=== PATIENT | male | born 1995 ===

== ENCOUNTER 2018-10-30 16:23 | Emergency (ER) | payer OTHER ==
[2018-10-30 16:35] VITALS: RESP 18
[2018-10-30 16:36] VITALS: BMI 26.7
--- NOTE | 2018-10-30 17:12 | ED PDOC ---
History of Present Illness History of Present Illness: Pt to ED for evaluation of productive cough, congestion and headache x1 week. Denies fever, chills, nausea, vomiting. Reports taking Tylenol at 13:30 and ibuprofen around 14:35 with mild relief. HPI: Influenza Time Seen by Provider: 10/30/18 16:48 Chief Complaint: Cough, Cold, Congestion Past Medical History Reviewed: Nursing Documentation, Vital Signs Vital Signs: Last Vital Signs Temp 100.1 F H 10/30/18 16:33 Pulse 95 H 10/30/18 16:33 Resp 18 10/30/18 16:33 BP 127/68 10/30/18 16:33 Pulse Ox 98 10/30/18 16:33 - Medical History PMH: No Chronic Diseases - Surgical History Surgical History: No Surg Hx - Family History Family History: States: No Known Family Hx - Living Arrangements Living Arrangements: With Family - Home Medications Home Medications: Ambulatory Orders Medication Instructions Recorded Azithromycin [Zithromax] 500 mg PO DAILY #6 tab 10/30/18 Ibuprofen [Motrin] 600 mg PO Q6 #20 tab 10/30/18 Methylprednisolone [Medrol Dose 4 mg PO DAILY #21 mg 10/30/18 Pack (21 tabs)] - Allergies Allergies/Adverse Reactions: Allergies Allergy/AdvReac Type Severity Reaction Status Date / Time No Known Allergies Allergy Verified 10/30/18 16:33 Review of Systems ROS Statement: Except As Marked, All Systems Reviewed And Found Negative Constitutional: Positive for: Fever ENT: Positive for: Nose Congestion Respiratory: Positive for: Cough Physical Exam - Reviewed Nursing Documentation Reviewed: Yes Vital Signs Reviewed: Yes - Physical Exam Appears: Positive for: Well, Non-toxic, No Acute Distress Head Exam: Positive for: ATRAUMATIC, NORMAL INSPECTION, NORMOCEPHALIC Skin: Positive for: Normal Color, Warm, DRY Eye Exam: Positive for: EOMI, Normal appearance, PERRL ENT: Positive for: Normal ENT Inspection Neck: Positive for: Normal, Painless ROM Cardiovascular/Chest: Positive for: Regular Rate, Rhythm Respiratory: Positive for: CNT, Normal Breath Sounds Gastrointestinal/Abdominal: Positive for: Normal Exam, Soft Back: Positive for: Normal Inspection Extremity: Positive for: Normal ROM Neurological/Psych: Positive for: Awake, Alert, Normal Tone Medical Decision Making Medical Decision Making: CXR: NAd, as read by PA-C Pt out of window for tamiflu Given RX to use, supportive care measures discussed as well. - ECG O2 Sat by Pulse Oximetry: 98 Disposition - Clinical Impression Clinical Impression: Viral syndrome, Upper respiratory infection - Patient ED Disposition Is Patient to be Admitted: No - Disposition Disposition: Routine/Home Disposition Time: 19:11 Condition: STABLE Prescriptions: Azithromycin [Zithromax] 500 mg PO DAILY #6 tab Ibuprofen [Motrin] 600 mg PO Q6 #20 tab Methylprednisolone [Medrol Dose Pack (21 tabs)] 4 mg PO DAILY #21 mg Instructions: Viral Syndrome (DC) Forms: [employer] (Green[place]ic)
--- NOTE | 2018-10-30 17:34 | RAD ---
Date of service: 10/30/2018 HISTORY: fever and cough COMPARISON: No prior. TECHNIQUE: Chest PA and lateral FINDINGS: LUNGS: No active pulmonary disease. PLEURA: No significant pleural effusion identified. No pneumothorax apparent. CARDIOVASCULAR: No aortic atherosclerotic calcification present. Normal cardiac size. No pulmonary vascular congestion. OSSEOUS STRUCTURES: No significant abnormalities. VISUALIZED UPPER ABDOMEN: Normal. OTHER FINDINGS: None. IMPRESSION: No active disease.
[2018-10-30 19:17] VITALS: BP 129/85; PULSE 93; TEMP 98.5; O2SAT 96
== END 2018-10-30 19:15 | disposition home or self-care (01) ==
LOC: H.ER 16:23
DX: B34.9 Viral infection, unspecified (principal); J06.9 Acute upper respiratory infection, unspecified
CPT/HCPCS: 71046; 96372; 99283; J1885